=== PATIENT | male | born 1950 | race Caucasian/White ===

== ENCOUNTER 2017-03-13 07:19 | Day surgery (SDC) | payer BC ==
[~2017-03-13 07:19] MED LIST: Lactated Ringers 1,000 ML IV SCH; Sodium Chloride 0.9% 10 ML Syringe FLUSH PRN
[2017-03-13] MEDS ORDERED: Propofol 200 MG/20 ML SDV IV ONE (09:00)
--- NOTE | 2017-03-13 09:03 | PCM.PN ---
- General Info Date of Service: 03/13/17 - Review of Systems Systems Review Comment:: 66 y/o male with history of colon polyps here for colonoscopy. His last colon exam was 3 years ago. He is medically stable to proceed with no significant change to his health status since his last exam. I have discussed the proposed colonoscopy with the patient. He understands risks and possible complications and he agrees to proceed. - Patient Data Vitals - Most Recent: Last Vital Signs Temp 98.1 F 03/13/17 08:25 Pulse 58 L 03/13/17 08:25 Resp 16 03/13/17 08:25 BP 143/81 H 03/13/17 08:25 Pulse Ox 97 03/13/17 08:25 Weight - Most Recent: 250 lb Med Orders - Current: Current Medications Lactated Ringer's (Ringers, Lactated) 1,000 mls @ 125 mls/hr IV ASDIRECTED JOHANA Last Admin: 03/13/17 08:41 Dose: 125 mls/hr Sodium Chloride (Saline Flush) 10 ml FLUSH ASDIRECTED PRN PRN Reason: Keep Vein Open - Problem List Review Problem List Initiated/Reviewed/Updated: Yes - My Orders Last 24 Hours: My Active Orders 03/13/17 07:15 Patient Status [ADT] Routine Blood Glucose Check, Bedside [RC] ONETIME Patient to Empty Bladder [RC] ASDIRECTED Verify Patient Consent Obtain [RC] ASDIRECTED Lactated Ringers [Ringers, Lactated] 1,000 ml IV ASDIRECTED Sodium Chloride 0.9% [Saline Flush] 10 ml FLUSH ASDIRECTED PRN Peripheral IV Insertion Adult [OM.PC] Routine 03/13/17 08:39 GLUCOSE,POC [POC] Routine - Assessment Assessment:: History of colon polyps - Plan Plan:: Colonoscopy
--- NOTE | 2017-03-13 09:50 | PCM.OPNOTE ---
- General Post-Op/Procedure Note Date of Surgery/Procedure: 03/13/17 Operative Procedure(s): Colonoscopy with polyp removal Findings: Small polyps near hepatic flexure Mild Sigmoid Diverticulosis Pre Op Diagnosis: History of colon polyps Post-Op Diagnosis: Colon polyps. Diverticulosis Anesthesia Technique: MAC Primary Surgeon: Danny Adamson Pathology: Hepatic flexure polyps Output, Urine Amount: 0 EBL in mLs: 2 Complications: None Condition: Good
[2017-03-13 10:13] VITALS: BP 137/78
--- NOTE | 2017-03-13 17:23 | OR ---
DATE OF OPERATION: 03/13/2017 SURGEON: Danny Adamson MD PREOPERATIVE DIAGNOSIS: History of colon polyps. POSTOPERATIVE DIAGNOSES: Colon polyps, diverticulosis. OPERATION PERFORMED: Colonoscopy with polyp removal. INDICATIONS FOR SURGERY: This 66-year-old male presents for surveillance colonoscopy. He has a history of colon polyps, and he comes for surveillance exam. FINDINGS: The patient has a cluster of 3 small polyps near the hepatic flexure. Each of these is 3 to 4 mm in size. No other polyps were seen. The patient also has a mild degree of sigmoid diverticulosis which does not appear acutely inflamed or otherwise complicated. PROCEDURE IN DETAIL: The patient was taken to the operating room. He was given intravenous sedation, and with him in the left lateral decubitus position, digital rectal exam was performed showing no rectal masses. The Olympus colonoscope was inserted into the rectum, retroflexed, and examination of the rectal canal was performed. The scope was then carefully advanced under direct visualization through the entire length of the colon until the cecum was reached. Cecal acquisition was confirmed by noting the normal internal cecal anatomy including the appendiceal orifice and ileocecal valve. The ileocecal valve was cannulated, and the distal portion of the terminal ileum also appeared normal. After examining the cecum, the scope was slowly withdrawn, sequentially re-examining the colonic segments. In the level of the hepatic flexure, 3 small polyps were identified. These were each removed grossly in their entirety with the biopsy forceps. With no sign of any complicating factors from this area, the exam was continued until the entire colon and rectum had been fully examined. The scope was then removed and the patient was taken from the operating room in satisfactory condition. ESTIMATED BLOOD LOSS: 2 mL. COMPLICATIONS: None. PROGNOSIS: Good. /[id number] MARIANO/KESHA
== END 2017-03-13 10:45 | disposition home or self-care (01) ==
LOC: FB.SDS 07:19
PROVIDERS: ATTEND Surgery
DX: Z12.11 Encounter for screening for malignant neoplasm of colon (principal); D12.3 Benign neoplasm of transverse colon; Z86.010 Personal history of colon polyps; K57.30 Diverticulosis of large intestine without perforation or abscess without bleeding; G47.33 Obstructive sleep apnea (adult) (pediatric); Z90.49 Acquired absence of other specified parts of digestive tract; Z98.890 Other specified postprocedural states; Z79.84 Long term (current) use of oral hypoglycemic drugs; Z79.899 Other long term (current) drug therapy
CPT/HCPCS: 45380; 82962; 88305; J2704; J7120

== ENCOUNTER 2025-04-07 06:16 | Day surgery (SDC) | payer MEDICARE, BC, OTHER ==
[~2025-04-07 06:16] MED LIST changes: -Lactated Ringers 1,000 ML IV SCH
[2025-04-07] MEDS ORDERED: Propofol 200 MG/20 ML SDV IV ONE (06:17)
[2025-04-07] MEDS ORDERED: Ketamine 500 mg/10 ML MDV IV ONE (06:17)
[2025-04-07] MEDS ORDERED: Midazolam 1 MG/ML 2 ML SDV IV ONE (06:17)
[2025-04-07 06:46] VITALS: BP 128/77; PULSE 53
[2025-04-07] MEDS: Lactated Ringers 1,000 ML IV SCH (07:10)
== END 2025-04-07 09:31 | disposition home or self-care (01) ==
LOC: FB.SDS 06:16
PROVIDERS: ATTEND Surgery
DX: Z12.11 Encounter for screening for malignant neoplasm of colon (principal); D12.0 Benign neoplasm of cecum; K63.5 Polyp of colon; K57.30 Diverticulosis of large intestine without perforation or abscess without bleeding; E66.9 Obesity, unspecified; Z68.36 Body mass index [BMI] 36.0-36.9, adult; Z79.899 Other long term (current) drug therapy; Z86.0100 Personal history of colon polyps, unspecified
CPT/HCPCS: 00811; 82947; 88305; 93005; 99100; A9270-GY; J2003; J2250; J2704; J3490; J7120